=== PATIENT | female | born 1960 | race Caucasian/White ===

== ENCOUNTER 2016-12-13 07:12 | Day surgery (SDC) | payer BC ==
[~2016-12-13] VITALS: Ht 167.6 cm; Wt 109.3 kg
--- NOTE | 2016-12-14 11:31 | OR ---
[facility] [address] [place], [place] [address] Signed DATE OF PROCEDURE: 12/13/16 PREOPERATIVE DIAGNOSIS: Screening. POSTOPERATIVE DIAGNOSIS: Long redundant colon. PROCEDURE: Colonoscopy without biopsy. ESTIMATED BLOOD LOSS: None. INDICATIONS Becki is a 56-year-old obese female who asked to see me for screening colonoscopy. She has no lower GI complaints. There is no family history of colon cancer or polyps. She spoke of a negative colonoscopy around 1994 or 1996. I gave her a pamphlet in the office on colonoscopy and we looked at that together along with the risks including, but not limited to gas bloating, crampy abdominal pain, bleeding, perforation requiring surgery, and missed diagnosis. She also understands the need for IV conscious sedation. She had expressed understanding and wished to proceed. PROCEDURE NOTE Becki was taken into our endoscopy suite, placed in the left lateral decubitus position. She was given divided doses of 10 mg of Versed and 200 mcg of Fentanyl. A digital rectal exam was performed and this was unremarkable. The adult colonoscope was introduced and advanced all around into the cecum under direct visualization. It took extra sedation, abdominal compression, and rotating Becki into the supine position then back in the left lateral decubitus position in order to get the camera to pass through this long redundant colon. We finally made it to the cecum where we could see the alturas's foot. Her prep was good. The scope was then slowly withdrawn. We saw no pathology throughout the en tire colon or rectum. Upon retroflexion of the scope, there was no additional pathology noted above the anal canal. After this, the gas was suctioned out and the colonoscope removed. Becki tolerated the procedure well. RECOMMENDATIONS Becki can follow up in 10 years for repeat colonoscopy. If she has recall of this procedure, she might consider Propofol in the future. Sam Herrera MD Electronically Signed By: SAM HERRERA MD 12/14/16 1131 PATIENT NAME: CHRISTINA BROWN NASIR OPERATIVE REPORT DATE OF : 60 PHYSICIAN: SAM HERRERA MD REPORT #: [id number] REPORT IS CONFIDENTIAL AND NOT TO BE RELEASED WITHOUT AUTHORIZATION [address] [address] Signed /[place] /[id number] cc: MD Agatha Balderrama PA Electronically Signed By: SAM HERRERA MD 12/14/16 1131 PATIENT NAME: MARISA BROWNCLARITA BEST OPERATIVE REPORT DATE OF : 60 PHYSICIAN: SAM HERRERA MD REPORT #: [id number] REPORT IS CONFIDENTIAL AND NOT TO BE RELEASED WITHOUT AUTHORIZATION
== END 2016-12-13 09:44 | disposition home or self-care (01) ==
LOC: OPS 07:12 → DS 07:12 → OPS 08:15 → DS 08:15 → OPS 09:44
PROVIDERS: Colon & Rectal Surgery
PROC: 0DJD8ZZ Inspection of Lower Intestinal Tract, Via Natural or Artificial Opening Endoscopic (ICD-10-PCS; principal; 2016-12-13 08:15)
DX: Z12.11 Encounter for screening for malignant neoplasm of colon (principal); E66.9 Obesity, unspecified; Z90.710 Acquired absence of both cervix and uterus; Z98.890 Other specified postprocedural states; Z87.891 Personal history of nicotine dependence; Z68.39 Body mass index [BMI] 39.0-39.9, adult
CPT/HCPCS: J2250; J3010; J7120